=== PATIENT | male | born 1995 | race Caucasian/White ===

== ENCOUNTER 2019-04-16 18:21 | Emergency (ER) | payer MEDICARE, OTHER ==
[~2019-04-16] VITALS: Ht 172.7 cm; Wt 70.8 kg
[2019-04-16] MEDS ORDERED: SERT50TA PO (18:51)
[2019-04-16] MEDS ORDERED: LORA1TAB PO (18:51)
[2019-04-16] MEDS ORDERED: QUET200T PO (18:51)
[2019-04-16 18:53] LABS: BASOPHILS # (AUTO) 0.1 /CMM (0.0-0.2); BASOPHILS % (AUTO) 0.4 % (0.0-2.0); EOSINOPHILS % (AUTO) 0.1 % (0.0-6.0); HEMATOCRIT 46 % (39-51); HEMOGLOBIN 15.6 g/dL (13.5-17.5); LYMPHOCYTES # (AUTO) 2.4 /CMM (0.8-4.8); LYMPHOCYTES % (AUTO) 20.4 % (20.0-44.0); MEAN CORPUSCULAR HGB CONC 34 g/dl (31.0-36.0); MEAN CORPUSCULAR VOLUME 93 fL (80-96); MONOCYTES # (AUTO) 0.6 /CMM (0.1-1.30); MONOCYTES % (AUTO) 5.4 % (2.0-12.0); NEUTROPHILS # (AUTO) 8.5 /CMM (1.8-8.9); NEUTROPHILS % (AUTO) 73.7 % (43.0-81.0); PLATELET COUNT (AUTO) 203 /CMM (150-450); RED BLOOD CELL COUNT(AUTO) 4.89 MIL/uL (4.5-6.0); WHITE BLOOD COUNT (AUTO) 11.6 K/uL (4.3-11.0)
--- NOTE | 2019-04-16 18:55 | NUR ---
patient WILFREDO from [facility], had a syncopal episode and hit head on the wall, on room air, breathing evenly and unlabored. connected to the monitor and pulse ox. kept comfortable, will continue to monitor accordingly.
[2019-04-16 18:58] LABS: CALCIUM, SERUM 8.9 mg/dL (8.5-10.1); CARBON DIOXIDE 23 mmol/L (21-32); CHLORIDE 104 mmol/L (98-107); CREATININE 0.8 mg/dL (0.6-1.3); GLUCOSE 99 mg/dL (74-106); POTASSIUM 3.8 mmol/L (3.5-5.1); SODIUM SERUM 138 mmol/L (136-145); UREA NITROGEN, BLOOD 17 mg/dL (7-18)
[2019-04-16] MEDS ORDERED: IV NS 0.9% 1,000 ML BAG IV ONE (19:00)
--- NOTE | 2019-04-16 19:08 | NUR ---
report given to Aishwarya LUNDBERG for jabier.
--- NOTE | 2019-04-16 19:21 | NUR ---
RECEIVED REPORT FROM ALEJANDRO RN, PT RESTING COMFORTABLY IN BED, NO DISOCMFORT AT THIS TIME, AWAITNG TRANSPORT BACK TO [facility]
--- NOTE | 2019-04-16 19:21 | NUR ---
DARLYN HYLTON TO [facility] ETA [phone] TRIP#[id number]
--- NOTE | 2019-04-16 19:27 | NUR ---
CALI NEWSPAPER WRITER TIME 2100
--- NOTE | 2019-04-16 19:35 | NUR ---
SOCAL TO CALL BACK IF BED AVAIBLE FOR PT TO GO BACK
--- NOTE | 2019-04-16 20:44 | NUR ---
CALLED IN REPORT TO MANE LUNDBERG IN UNIT 2 AT [facility]
[2019-04-16 21:04] VITALS: BP 100/66
--- NOTE | 2019-04-16 21:04 | NUR ---
PICKED UP BY TRANSPORT
== END 2019-04-16 21:05 | disposition short-term general hospital (02) ==
LOC: ER 18:26
DX: R55 Syncope and collapse (principal); E86.0 Dehydration; F20.9 Schizophrenia, unspecified; Z88.8 Allergy status to other drugs, medicaments and biological substances; Z79.899 Other long term (current) drug therapy
CPT/HCPCS: 36415; 71045; 80048; 84484; 85025; 93005; 96360; 99285; J7030

== ENCOUNTER 2019-04-17 08:39 | Emergency (ER) | payer MEDICARE, OTHER ==
[~2019-04-17] VITALS: Ht 175.3 cm; Wt 82.6 kg
[~2019-04-17 08:39] MED LIST: LORA1TAB PO; QUET200T PO; SERT50TA PO
--- NOTE | 2019-04-17 08:45 | NUR ---
[id number] FRM SCHVN, WITNESSED SEIZURE PER REPORT, PT AAO C/O HEAD PAIN S/P FALL. BG 91 SHIPWRIGHT. ALERT AND OREINTED X4, BREATHING EVEN UNLABORED WITH NO DISTRESS NOTED. PATIENT ABLE TO MOVE ALL EXTREMITY. SKIN INTACT. AWAITING TO BE SEEN BERNARD ARAMBULA
--- NOTE | 2019-04-17 09:13 | NUR ---
Called Gene Montilla. To report that pt is going to be transferred back
--- NOTE | 2019-04-17 09:23 | NUR ---
CALLED TRANSPORT ETA IS 30 MINS PER [facility] TRIP NUMBER IS [id number]
--- NOTE | 2019-04-17 09:45 | NUR ---
BREAKFAST AT BEDSIDE
--- NOTE | 2019-04-17 09:58 | NUR ---
EMT AT BEDSIDE TO TAKE PATIENT BACK TO FACILITY
[2019-04-17 10:01] VITALS: BP 116/68
== END 2019-04-17 10:02 ==
LOC: ER 08:45
DX: R53.1 Weakness (principal); Z88.9 Allergy status to unspecified drugs, medicaments and biological substances; Z88.8 Allergy status to other drugs, medicaments and biological substances